=== PATIENT | female | born 1950 | race Caucasian/White ===

== ENCOUNTER 2016-07-09 06:16 | Day surgery (SDC) | payer OTHER ==
[2016-07-09] VITALS (14 sets, daily range): BP systolic 78–129; BP diastolic 50–75; PULSE 80–89; RESP 10–18; O2SAT 89–99
[~2016-07-09] VITALS: Ht 180.3 cm; Wt 80.5 kg
[~2016-07-09 06:16] MED LIST: CeFAZolin Inj 2 GM in IV Premix 1 EACH IV SCH; LEVO137T2 PO; LISI-567 PO; METF500T7 PO; PRE625 PO; Phenazopyridine 97.5 mg Tablet PO SCH; SIMV40TA5 PO; TRAZ-115 PO
[2016-07-09] MEDS ORDERED: fentaNYL-PF 50 mCg/mL 2 mL Inj ONE (06:17)
[2016-07-09] MEDS ORDERED: Ketamine 10 mg/mL 20 mL Inj ONE (06:17)
[2016-07-09] MEDS ORDERED: HYDROmorphone 2 mg/mL Inj ONE (06:17)
[2016-07-09] MEDS: Lactated Ringer's 1,000 ML IV SCH ×6 (07:25→16:42)
--- NOTE | 2016-07-09 08:51 | PCM.HPANE ---
Patient Data Date of Service: Jul 09, 2016 (0800 interview) Surgeon Admitting Provider: Attending Provider:Mervin Padilla MD Primary Care Physician:Alex De La Rosa DO Other Provider: Reason for Visit Uterovag Prolapse,Cystocele,Rectocele,Incontinence Ht/WT & BMI Height (Feet): 5 Height (Inches): 11 Weight (Kilograms): 80.5 Body Mass Index 24.00 Allergies Coded Allergies: No Known Allergies (Verified , 03/13/09) Uncoded Allergies: CORTISONE (Allergy, Severe, RASH SEVERE HIVES, 03/13/09) Past Anesthesia History Anesthesia History: Denies:: Abnormal Airway, Anesthesia Reactions, Difficult Intubation Diabetes History Hx Diabetes?: Yes Type of Diabetes: Type II Glycemic Control: Oral Medication Current Bedside Blood Glucose: 93 Medications Hypertension Medication: Yes Home Meds Incl Beta Shahab: No Reported Medications Levothyroxine 137 Mcg [id number] Mcg PO DAILY Ref 0 07/08/16 Metformin ER 500 Mg [id number] Mg PO DAILY Ref 0 07/08/16 Trazodone 50 Mg [id number] Mg PO HS Ref 0 07/08/16 Estrogens Conjugated (Premarin)0.625 Mg Tablet0.625 Mg PO 2xweekly 30 Days Ref 0 07/08/16 Lisinopril 20 Mg [id number] Mg PO DAILY 30 Days Ref 0 07/08/16 Simvastatin 40 Mg [id number] Mg PO HS 30 Days Ref 0 07/08/16 Discontinued Reported Medications Tramadol-Expunged Drug, Do Not Renew! (Ultram-Expunged Drug, Do Not Renew!)50 Mg Tab50 Mg PO TID PRN Ref 0 01/05/09 Atenolol-Expunged Drug, Do Not Renew! 25 Mg Josljt40 Mg PO HS Ref 0 01/05/09 Levothyroxine-Expunged Drug, Do Not Renew! (Synthroid-Expunged Drug, Do Not Renew!)25 Mcg Tablet0.15 Mcg PO Ref 0 01/05/09 Duloxetine-Expunged Drug, Do Not Renew! (Cymbalta-Expunged Drug, Do Not Renew!) 30 Mg Capsule.dr30 Mg PO AM Ref 0 01/05/09 History History of ENT Problems?: No HEENT History: Denies:: Difficult Intubation Hx of Heart Problems?: Yes Cardiovascular History: Positive for:: Hypertension Hx of Respiratory Problem?: No Respiratory History: Denies:: Asthma COPD Emphysema Oxygen Administration Pneumonia Tuberculosis Use of C-PAP Machine Use of Inhalers / NEBS Hx Neurologic Problems?: No Neurological History: Denies:: CVA Multiple Sclerosis Parkinson's Disease Seizures Hx of GI Problems?: No Gastrointestinal History: Denies:: Cirrhosis Gall Bladder Disease Gastrointestinal Bleeding Heartburn Hepatitis Liver Disease Hx of Problems?: Yes Genitourinary History: Denies:: Kidney Stones Female Hx: Denies:: Currently Problems with Breasts? Skin History: Denies:: History Skin Disorders? Pressure Ulcers Hx Musculoskeletal Problems?: Yes Musculoskeletal History: Positive for:: Back Injury (multiple neck surgery) Osteoarthritis Denies:: Fibromyalgia Joint Replacement Musculoskeletal Trauma Myasthenia Gravis Hx of Psycho/Social Problems?: No Hx Surgeries?: Yes (multiple neck, left shoulder, foot, left hand) Hx Any Other Health Problems?: Yes Other History: Positive for:: Thyroid Disease Denies:: Cancer Hx Diabetes: YesBedside Blood Glucose: 93 Hx Alcohol Use: YesAlcoholic Drinks Per Day: rarelyHx Substance Use: NoHave You Smoked inLast 12 mo: No Stop/Bang Treated for Sleep Apnea?: No Do You Have a CPAP Machine?: No P-Blood Pressure: treated: Yes B- Body Mass Index > 35 kg/m2: No A- Age over 50: Yes N- Neck Large Circumference: No G- Gender Male: No TAVO Risk Assessment: Low Risk, <3 Yes Risk Assessment Category Category 1A: Patient has history of documented sleep apnea, and HAS NOT received any narcotic, sedative or anesthesia administration during this stay. Category 1B: Patient has history of documented sleep apnea, and HAS received any narcotic , sedative or anesthesia administration during this stay Category 2: Patient has SUSPECTED Obstructive Sleep Apnea, and HAS received any narcotic , sedative or anesthesia administration during this stay. Category 3: Patient has SUSPECTED Obstructive Sleep Apnea and HAS NOT received narcotic, sedative or anesthesia administration during this stay. Category 4: Outpatient in Procedural Areas with known sleep apnea or who screen positive for High Risk via the STOP/BANG questionnaire. Exam Exam Vital Signs Vital Signs Date Time Temp Pulse Resp B/P Pulse Ox O2 Delivery O2 Flow Rate FiO2 07/09/16 07:03 36.5 80 16 118/75 98 Room Air General Appearance: Alert, Oriented X3, Cooperative, No Acute Distress HEENT/AIRWAY: MP 2 Lungs: Clear to Auscultation, Normal Air Movement Heart: Exam Unremarkable, Regular Rate/Rhythm, No Murmurs/Rubs/Gallops Meds/Labs/Diagnostics Admission Meds Current Medications Lactated Ringer's (Lr) 1,000 ml @ 120 mls/hr Q8H20M IV Last administered on t 07:25; Start 07/09/16 at 05:00; Stop 07/09/16 at 13:19 Bedside Blood Glucose: 93 Plan Impression Patient chart reviewed, patient interviewed and anesthestic plan with risks, benefits, and alternatives discussed, and informed consent obtained. NPO Status: 0430 water with meds ASA Physical Status: ASA2 Mod Systemic Disease (DM 2) Anesthetic Plan: GA Bene/Risks/Altern/Consents: Yes HP Complete Prior to Induction: Yes Adrian Cedillo MD Jul 09, 2016 08:51
[2016-07-09] MEDS ORDERED: Lactated Ringer's 500 ML IV PRN (08:53)
[2016-07-09] MEDS ORDERED: Dexamethasone 4 mg/mL Inj IVPUSH PRN (08:55)
[2016-07-09] MEDS ORDERED: Ondansetron 2 mg/mL 2 mL Inj IVPUSH PRN ×2 (08:55→13:45)
[2016-07-09] MEDS ORDERED: EPHEDrine Sulfate 50 mg/mL Inj IVPUSH PRN (08:55)
[2016-07-09] MEDS ORDERED: Phenylephrine 10,000 mCg/mL Inj IVPUSH PRN (08:55)
[2016-07-09] MEDS ORDERED: fentaNYL-PF 50 mCg/mL 2 mL Inj IVPUSH PRN (08:55)
[2016-07-09] MEDS ORDERED: HYDROmorphone 1 mg/mL Inj IVPUSH PRN (08:55)
[2016-07-09] MEDS ORDERED: MetoCLOpramide 5 mg/mL 2 mL Inj IVPUSH PRN ×2 (08:55→13:45)
[2016-07-09] MEDS ORDERED: Lidocaine 1%-Epi 1:100,000 20 mL Inj INJ ONE (09:00)
[2016-07-09] MEDS ORDERED: Gentamicin 40 mg/mL 2 mL Inj IRRIGATION ONE (09:00)
[2016-07-09] MEDS ORDERED: Lidocaine 1%-Epi 1:100,000 20 mL Inj INFILTRATE ONE (09:00)
[2016-07-09] MEDS ORDERED: Sodium Chloride Bacteriostatic 30 mL Inj INJ ONE ×2 (09:00→10:54)
[2016-07-09] MEDS ORDERED: Lidocaine 1%-Epi 1:100,000 50 mL Inj INFILTRATE ONE (10:50)
[2016-07-09 11:10] LABS: APPEARANCE,URINE HAZY (CLEAR,HAZY); COLOR,URINE STRAW (YELLOW); OCCULT BLOOD,URINE NEGATIVE (NEGATIVE); PH,URINE 6.5 (5.0-8.0); UROBILINOGEN,URINE NORMAL (NORMAL)
[2016-07-09] MEDS ORDERED: Estrogens Conjugated 30 Gm Vaginal Cream VAGINAL ONE (13:04)
[2016-07-09] MEDS ORDERED: diphenhydrAMINE 25 mg Capsule PO PRN (13:45)
[2016-07-09] MEDS ORDERED: Alum-Mag Hydrox-Simeth 30 mL Suspension PO PRN (13:45)
[2016-07-09] MEDS ORDERED: Acetaminophen IV 1,000 MG in IV Premix 1 EACH IV SCH (14:00)
--- NOTE | 2016-07-09 14:59 | PCM.ANEP2 ---
Post Anesthesia Evaluation ASA/CMS Post Anesthesia VS in Patient's Normal Range?: Yes Resp Stable; Airway Patent?: Yes CV Function & Hydration Stable: Yes Mental Status Recovered?: Yes Pain control Satisfactory?: Yes N/V Control Satisfactory?: Yes Adrian Cedillo MD Jul 09, 2016 14:59
--- NOTE | 2016-07-09 14:59 | PCM.ANEP1 ---
Post Anesthesia Phase 1 PACU Phase 1 Assessment Date of Service: Jul 09, 2016 (0800 interview) Vital Signs Vital Signs Date Time Temp Pulse Resp B/P Pulse Ox O2 Delivery O2 Flow Rate FiO2 07/09/16 14:49 82 12 112/62 97 Nasal Cannula 3 07/09/16 14:39 84 10 108/64 96 Nasal Cannula 3 07/09/16 14:30 84 12 108/62 96 Nasal Cannula 3 07/09/16 14:18 88 14 96/61 95 Nasal Cannula 3 07/09/16 14:10 88 17 102/58 96 Nasal Cannula 3 07/09/16 14:07 84 13 102/57 89 Room Air 07/09/16 14:00 88 15 106/63 98 Simple Mask 10 07/09/16 13:55 89 10 107/56 95 Simple Mask 10 07/09/16 13:51 88 16 93/54 99 Simple Mask 10 07/09/16 13:45 86 15 90/54 99 Simple Mask 10 07/09/16 13:39 37.3 87 17 78/50 99 Simple Mask 10 07/09/16 07:03 36.5 80 16 118/75 98 Room Air Anesthetic Administered: GA Level of Alertness: Awake, talking AMBRIZ's with Equal Strength: Yes Pain: No Nausea or Vomiting: No Oxygen Delivery: Simple Mask Lungs: Clear to Auscultation, Normal Air Movement Dermatome Level: Full Sensation Adrian Cedillo MD Jul 09, 2016 14:59
--- NOTE | 2016-07-09 15:15 | NUR ---
Post op Pt arrived to floor ~1500. Able to move self from gurney to bed. C/o pain 02/24. Cade draining clear uop. keara pad in place; no drainage noted. Medicated with 1 mg ivp morphine with minimal relief of 12/25. Pt was able to tolerated water and toast with peanut butter. Medicated with 2 tabs of oxycodone.White board updated and explained plan of care with pt. Primary Nurse Yamileth GRANADOS aware. care ovi Addendum: 07/09/16 at 1742 by WILL SHARMA RN Pt resting comfortably after 2 tabs of perc. rates pain 10/25. Luis dior
[2016-07-09] MEDS: oxyCODONE-Acetamin 5-325 mg Tablet PO PRN (15:56)
[2016-07-09] MEDS: 0.9% Sodium Chloride 1,000 ML IV SCH (16:41)
[2016-07-09] MEDS: Insulin Human REGular 300 Unit/3 mL Inj SUBQ SCH ×2 (16:42→22:16)
[2016-07-09] MEDS: Senna-Docusate 8.6-50 mg Tablet PO SCH (21:27)
[2016-07-09] MEDS ORDERED: metFORMIN ER 500 mg ER24 Tablet PO SCH (21:56)
--- NOTE | 2016-07-09 22:49 | PCM.SURGOP ---
Surgical Operative Report Date of Service: Jul 09, 2016 Pre Operative Diagnosis 1. POPQ Stage 2 Apical Uterovaginal prolapse, incomplete 2. POPQ Stage 2 Anterior and Posterior vaginal prolapse 3. Urodynamically-confirmed Stress incontinence in female Post Operative Diagnosis 1. POPQ Stage 2 Uterine prolapse, Enterocele, Cystocele, Rectocele 2. Deficient pubocervical/pubovesical fascia 3. Urodynamically-confirmed Stress incontinence in female Procedure: 1. vaginal hysterectomy with bilateral salpingoophorectomy 2. anterior repair with Xenform biologic graft augmentation. 3. posterior colpoperineorrhaphy 4. high uterosacral ligament vaginal vault suspension and enterocele repair 5. TVT-obturator sling/cystoscopy. Surgeon and Access Rep: Surgeon: Mervin Padilla MD Assistants: Diego Jackson MD Indication for Procedure Kay has the following assessment to date: 1. Uterovaginal prolapse, incomplete N81.2 (618.2): 2. Midline cystocele N81.11 (618.01): 3. Rectocele N81.6 (618.04): 4. ASCUS with positive high risk HPV cervical R87.610 (795.01): normal colposcopy with biopsies 5. Urodynamically-confirmed Stress incontinence in female N39.3 (625.6): The patient is a candidate for surgical prolapse management in the form of vaginal hysterectomy with bilateral salpingectomy or with possible BSO, if the ovaries are accessible, anterior and posterior repair with possible biologic graft augmentation. high uterosacral ligament vaginal vault suspension, enterocele repair and TVT-obturator sling/cystoscopy. The patient signed the consent form. She agreed with the risks, benefits, and alternatives to surgery. The risks included but not limited to recurrence or persistence of prolapse, recurrence of persistence of incontinence, development of voiding dysfunction, development of urinary urgency, urgency incontinence, frequency, and need for intermittent self-catheterization or prolonged indwelling catheterization, injury to other organs including bladder, bowel, nerves or blood vessels. Need for blood transfusion, need for temporary colostomy or urinary stenting. Development of vaginal scarring, dyspareunia, defecatory dysfunction, recurring pain, hematoma formation, urinary tract infection, cellulitis, necrotizing fascitis, and medical risks including myocardial infarction, stroke or VTE. She also understood the FDA warnings associated with the use of vaginal mesh (dysparunia, vaginal erosion, erosion into bowel/bladder/urethra, requiring further surgery to correct these complications). The patient understood the risks and benefits and consented to surgery. Findings: see dictation Procedure Details SURGICAL TECHNIQUE: The patient was brought to the operating room and was placed under general anesthesia. She was prepped and draped in the normal fashion for vaginal surgery with the legs in Yellofin stirrups. She was given a dose of IV ancef intraoperatively. She received 200 mg of oral pyridium 30 min prior to surgery. 1. Vaginal Hysterectomy and bilateral salpingoophorectomy: Lidocaine 0.5% with 1:50,000 of epinephrine was infiltrated pericervically. A pericervical incision was made with a scalpel. Anteriorly, the bladder was sharply dissected off the cervix. Posteriorly, the cul de sac was entered with Sharp dissection. The bowels were packed with a mini-laparotomy sponge. The uterosacral ligaments were bilaterally clamped, divided and then tied in a transfixion fashion with 0-vicryl suture. Anteriorly, the Uterovesical peritoneum was entered with sharp dissection and the bladder was retracted upward with a right-angle retractor. The uterine vessels were clamped, ligated then tied with 0-vicryl suture. The uterine body was delivered posteriorly. The utero-ovarian ligaments were clamped bilaterally, coagulated with Ligasure Impact system, ligatated and then tied using 0-Vicryl suture. The ovaries and tubes appeared normal. Next we proceeded with Bilateral Salpingoophorectomy. The left ovary and tube were grasped with Ranjan clamp. A hysterectomy Clamp was placed along the vascular base. This was coagulated, then ligated with Ligasure Impact. The Pedicle was then tied using 0-vicryl suture. The same procedure was performed on the right adnexa. The uterus/cervix, tubes and ovaries were sent to pathology. It was noted that the pedicles and cuff were hemostatic after some cauterization. 2. High uterosacral ligament vaginal vault suspension, cystoscopy and enterocele repair: Mini laparotomy sponges were packed to retract the bowel upwards. A pair of Allis clamps were placed along the intraperitoneal portions of the vagina at the 5 and 7 o'clock positions. Tension along these Allis clamps allowed for identification of the uterosacral ligaments bilaterally. Also , the ureters were carefully palpated to avoid them. A pair of 0 Vicryl sutures were passed around the uterosacral ligaments of the level of the ischial spine bilaterally, totalling 4. Cystoscopy was performed while placing tension on the vault suspension sutures. Spillage of pyridium- stained urine was noted bilaterally. Next, a two 3-0 Prolene sutures were placed transversely through the cul-de-sac peritoneum. This was performed while using a gloved finger in the rectum as to avoid penetrating the underlying rectal mucosa. Tying these sutures obliterated the enterocele. 3. Anterior colporrhaphy with Xenform graft augmentation: Lidocaine 0.5% with 1 /81299 epinephrine was infiltrated along the anterior vaginal wall mucosa. The vaginal mucosa was noted to be thin and atrophic. A midline vertical incision was made through the anterior vaginal wall. The vaginal wall was dissected off the underlying pubocervical and pubovesical fascia. The dissection was extended laterally beyond the ischial pubic rami. It was noted that the pubocervical and pubovesical fascial tissues were deficient and thin. The cystocele was plicated in 2 layers, the first layer with 2-0 Vicryl suture in interrupted fashion, the second layer with 2-0 Tycron suture in an interrupted fashion. A trapezoidal piece of Xenform graft was then incorporated atop the plicated area far laterally. The graft was secured to the obturator internus membrane. At the level of the bladder neck, an upside down triangular piece of graft was excised so that there was no over-support created along the level of the bladder neck. Apically , the graft was passed through the proximal uterosacral ligament sutures. No anterior vaginal mucosa was needed to be excised. The vault suspension sutures were then passed through the planned apex of the vagina. Two were placed through the anterior apex and the other two, through the posterior apex. The vagina was then reapproximated using 3-0 Vicryl suture in a running-locked fashion. The high uterosacral ligament vaginal vault suspension sutures were tied and this elevated the apex of the vagina high up into the hollow of the sacrum. 4. Posterior colpoperineorrhaphy: Lidocaine 0.5% with 1:50,000 of epinephrine was infiltrated along the perineum and posterior vaginal wall mucosa. A thin wedge of perineum was excised. A Midline vertical incision was made through the posterior vagina with a scalpel. The vaginal mucosa was dissected off the underlying rectovaginal tissues. It was noted the fascial tissues were sufficient. The rectocele was repaired first in a site-specific defect fashion, and then it was plicated using 2-0 Vicryl suture in an interrupted fashion. A small amount of excess posterior vaginal mucosa was excised. The vagina was reapproximated using 3-0 Vicryl suture in a running-locked fashion. The perineum was reapproximated using 2-0 Vicryl suture in an interrupted fashion. The skin was reapproximated using 3-0 Vicryl suture in a subcuticular fashion. 5. TVT-Obturator sling and cystoscopy. Lidocaine 0.5% with epinephrine was infiltrated along the anterior vaginal wall mucosa at the level of the mid urethra. Midline vertical incision was made at that level, 2 periurethral tunnels were created with Metzenbaum scissors. Two stab incisions were created at the skin at the groin at a level 2 cm superior to the external urethral meatus and 2 cm lateral to the fold created between the vulva and thigh. Villa catheter had already been inserted. A butterfly guide was inserted into the right periurethral tunnel, a curved helical needle was inserted on top of the guide and rotated out to the ipsilateral skin incision. The same procedure was performed on the contralateral side. Next the Villa catheter was removed. Cystoscopy was performed. There was no inadvertent penetration of the sling to the vagina, urethra or bladder. The bladder appeared normal. Both ureteric orifices were visualized and noted to be functional by the brisk spillage of pyridium-stained urine. The plastic sheaths of the sling were removed. The bladder was filled with 300 mL of sterile water. Using the Crude maneuver, sling tension was appropriately adjusted. Also a right angle clamp was allowed to easily pass behind the sling so that the sling was placed in a tension-free manner. The sling ends were cut at the level of the skin. The skin was reapproximated using Mastisol, Steri-Strips and band-aids. The vagina was reapproximated using 3-0 Vicryl suture in a running fashion. The vagina was packed with Premarin-lubricated packing. The 16F indwelling villa catheter was connected to straight drainage. The patient's hips were periodically deflexed during the case. There were no complications. The EBL was 300 ml. All sponges and instruments were accounted for. She was taken to the recovery room in stable condition. Complications There were no periprocedural complications identified. Surgical Specimen Removed: Yes Specimen sent to Pathology: Yes Surgical Specimen description: uterus, cervix and ovaries Anesthetic Plan: GA Grafts, Implants: Grafts-See Implant Record, Implants-See Implant Record Output, Estimated Blood Loss: 300 (ml) Blood Administration during osuna: No Drains: None Catheters: Urethral 2 Way Villa Post Operative Plan overnight stay in bed as she requires a voiding trial in the am copies to: Diego Jackson MD; Alex De La Rosa DO; Mervin Padilla MD, William Andre Z MD Jul 09, 2016 22:49
[2016-07-10 00:32] VITALS: BP 125/73; PULSE 84; RESP 18; O2SAT 97
[2016-07-10] MEDS: oxyCODONE-Acetamin 5-325 mg Tablet PO PRN ×4 (00:44→13:19)
[2016-07-10] MEDS: 0.9% Sodium Chloride 1,000 ML IV SCH ×3 (00:45→09:23)
[2016-07-10] MEDS: Insulin Human REGular 300 Unit/3 mL Inj SUBQ SCH ×3 (02:30→13:22)
--- NOTE | 2016-07-10 03:31 | NUR ---
Pain Pt. was moaning and rated pain 10/10. 2mg IV morphine and 2 tabs of percocet given, and seem to be effective. Pt. falls asleep for a couple of hours, but wakes up with mod to severe pain. Will continue to monitor.
[2016-07-10 05:19] VITALS: BP 125/70; PULSE 88; RESP 18; O2SAT 97
[2016-07-10 06:21] LABS: BASOPHILS % (AUTO) 0.1 % (0-3); EOSINOPHILS % (AUTO) 0 % (0-5); MONOCYTES % (AUTO) 8.9 % (4-12); Mean Corpuscular Hemoglobin 31.6 pg (27.0-35.0); Mean Corpuscular Volume 93.3 fL (81-100); NEUTROPHILS % (AUTO) 81.5 % (40-74); Platelet Count 195 bil/L (150-400)
[2016-07-10] MEDS: Heparin 5,000 Unit/mL Inj SUBQ SCH ×2 (07:52→09:25)
[2016-07-10] MEDS: Senna-Docusate 8.6-50 mg Tablet PO SCH (07:55)
[2016-07-10 07:57] VITALS: BP 109/67; PULSE 84; RESP 16; O2SAT 95
--- NOTE | 2016-07-10 08:15 | NUR ---
Heparin Did not administer heparin this morning because patient's hematocrit is 30.4 and order says only to admin if >31. Patient has SCD's on. Patient has call light should she need any assistance. Addendum: 07/10/16 at 1311 by SANKET LANDRY RN MD NOTIFICATION Patient rated her pain as 5/10. Per patient the IV Morphine and Percocet have been fairly effective. Tolerating liquids PO and her diet well. Denies nausea. No emesis noted. Denies SOB. Weaned off O2. Vaginal packing and IFC in place. Dressing in her bilateral groin is CDI. Peripad had moderate output at this time. Hgb/Hct: 10.3/30.4. Dr. Padilla updated RE: Patients progress. New med orders received. Will continue to monitor.
[2016-07-10] MEDS ORDERED: metFORMIN ER 500 mg ER24 Tablet PO SCH (09:21)
--- NOTE | 2016-07-10 11:00 | NUR ---
Vaginal Packing/Voiding Trial Pre-medicated patient with 2 tab of Percocet around 0930am and then had her take a short walk in her room 30 minutes later. Patient ambulated steadily but did say she was a little bit dizzy when she first got up. Then I had patient return to bed and I removed her vaginal packing, per orders. Then voiding trial began with 300ml of sterile water being inserted in to villa. Villa was then removed. Patient sat on the commode for about 20 minutes but was unable to void at all. Bladder scan showed 413ml so villa cath was re-inserted. Some blood clots were present around the site during insertion. Villa draining danii urine. Explained the villa care to the patient but will demonstrate care before discharge and have her return demonstrate to ensure understanding. Patient has call light and is calling appropriately. Addendum: 07/10/16 at 1653 by SANKET LANDRY RN VOIDING TRIAL I was with the student RN upon initiation and completion of the voiding trial as well as IFC placement. Vaginal packing was d/cd without any issues noted. Patient was not able to void after initiation of voiding trial. [id number]. IFC was placed. Dr. Padilla was updated RE: Voiding trial and IFC placement.
--- NOTE | 2016-07-10 13:45 | PCM.PNSURG ---
Subjective Date of Service: Jul 10, 2016 Date of Service: Jul 10, 2016 Visit Information: Reason for Visit Uterovag Prolapse,Cystocele,Rectocele,Incontinence Surgery/Surgery Date HYSTERECTOMY 07/09/16 Post-Op Day # 1 Subjective: AVSS ambulating pain controlled with Percocet and Ibuprofen OR explained - atrophic vagina noted Hct stable U/O good failed void trial - had villa teaching Postop General: No Complaints Gastrointestinal: Good Appetite Pain Management: PO Postop Activity: Ambulating Independently Objective Vital Sign- Last 8 Hours Date Time Temp Pulse Resp B/P Pulse Ox O2 Delivery O2 Flow Rate FiO2 07/10/16 07:57 36.8 84 16 109/67 95 Room Air Intake and Output- Last 8 Hour 07/10/16 Cumulative From/Thru 07:00 07/08/16 13:44 - 07/10/16 05:59 Intake Total 2201 ml 5151 ml Output Total 750 ml 2070 ml Balance 1451 ml 3081 ml Intake Oral 640 ml 640 ml IV Total 1561 ml 4511 ml Output Urine Total 750 ml 1470 ml Estimated Blood Loss 600 ml # Bowel Movements 0 0 General: Alert, Oriented X3, Cooperative Lungs: Clear to Auscultation Abdomen: Benign, Soft Catheters: Urethral 2 Way Villa Result Diagram: 07/10/16 0555 Assessment & Plan Impression stable POD#1 Problems: Plan d/c home today pt requests percocet and ibuprofen f/u 1 wk for voiding trial f/u [address] Padilla VTE Prophylaxis: Sub-Q Heparin (Unfractionated) Resuscitation Status: CPR: Attempt Resuscitation copies to: Mervin Padilla MD, William Andre Z MD Jul 10, 2016 13:45
--- NOTE | 2016-07-10 13:48 | PCM.DIGYN ---
Surgical Discharge Instruction Dates of Hospitalization Date of Hospital Admission 07/09/16 as outpatient in bed Providers Admitting Physician: Primary Care Physician: Alex De La Rosa DO Attending Physician: Mervin Padilla MD Diagnosis at Time of Discharge Diagnosis at time of discharge uterovaginal prolapse and stress incontinence Post-operative diagnosis 1. POPQ Stage 2 Uterine prolapse, Enterocele, Cystocele, Rectocele 2. Deficient pubocervical/pubovesical fascia 3. Urodynamically-confirmed Stress incontinence in female Problems: Diet Discharge Diet: No restrictions Activity Discharge Activity-General: Restrict lifting to no greater than (20 lb for 6 wk ) Dressing and Incisional Care Dressing Care: Allow Steri Stripes to fall off Hygiene: May shower Additional Instructions Discharge Instructions take the oral premarin daily start vaginal estrogen cream 2 grams twice weekly at bedtime in 1 wk (Dr. Padilla will give you a prescription at your next visit for the cheaper version; you can use the manufactured version until you run out) Follow Up Plan Follow-up appointment: Weeks (1; also in [address] Padilla) Call your provider for: Fever, Chills, Shortness of breath, Vomitting, Drainage at incision, Heavy vaginal bleeding, Wound redness, Increasing pain Mervin Padilla MD Jul 10, 2016 13:48
--- NOTE | 2016-07-10 16:10 | NUR ---
Discharge Patient rates pain at 6/10 at the present time. Patient states that the Percocet and Ibuprofen have been effective but the pain does not ever fully go away, only goes down to a 4/10. Patients IV removed. Patient denies nausea/vomiting, chest pain, SOB at this time. Patients bandaid dressings on groin are C/D/I with old shadowing present. Told patient she could take off bandaids but needs to leave Steri strips until they fall off on their own. Gave patient all the discharge instructions and information about catheter care then I demonstrated proper, clean care of the villa. Patient was anxious to leave with her friend and refused to do a return demonstration. Patient given the medication list and explained which meds to continue and what new meds she is being prescribed and the dosing regimen/schedule. Patient wheeled out in wheelchair and her friend is taking her to get her prescriptions filled and then home. Addendum: 07/10/16 at 1708 by SANKET LANDRY RN DISCHARGE Percocet 2 tabs and Ibuprofen 800 mg PO has been helpful for pain control. Patients pain level is 4/10 after her pain medication. Patient stated that this has been tolerable for her. Tolerating liquids PO and her diet well. Denies nausea. No emesis noted. Denies SOB. Patient was able to ambulate in the room with SBA. Tolerated activity fairly. IFC intact and draining to danii colored UO. Band aid dressing is CDI with old shadowing noted. IV saline lock was d/cd by SN. Discharge instructions, care notes and prescription was given to the patient and she verbalized understanding. IFC care and instruction was given to the patient and she verbalized understanding but she did not want to do any return demonstration during the discharge process. Discharged to home with her friend and all her personal belongings. (Copy of D/C is in the chart).
--- NOTE | 2016-07-11 14:44 | PATH ---
SURGICAL PATHOLOGY Attending Physician:Mervin Padilla, CASE STATUS: Signed Out PATIENT NAME: HANG AMAYA PID: [id number] : 1950 DATE COLLECTED:07/09/2016 22:24 SPECIMEN: 1: Uterus +/- tubes/ovaries, except neoplastic, prolapse 2: Ovary +/- tube, non-tumor CLINICAL HISTORY: UTERINE PROLAPSE, ASCUS ON PAP (HIGH RISK HPV TESTING) 1). UTERUS WITH RIGHT TUBE AND OVARY 2). LEFT TUBE AND OVARY FINAL DIAGNOSIS: 1.UTERUS WITH RIGHT TUBE AND OVARY (CLINICAL PROLAPSE): CYSTIC ATROPHY OF ENDOMETRIUM, NEGATIVE FOR ATYPIA. MULTIPLE SIMPLE EPITHELIAL CYSTS, RIGHT OVARY. RIGHT FALLOPIAN TUBE UNREMARKABLE. 2.LEFT FALLOPIAN TUBE AND OVARY: MULTIPLE SIMPLE EPITHELIAL CYSTS, OVARY. FALLOPIAN TUBE UNREMARKABLE. ICD10 CODE N81.4 GROSS DESCRIPTION: The specimens are received in formalin, labeled with the patient's name, and sublabeled as the following: (1) uterus with right tube and ovary; (2) left tube and ovary. (1) The specimen consists of a uterus (30 g, 2.6 cm AP, 6.5 cm SI, 2.8 cm ML) and a detached ovary (2.3 x 1.8 x 1.0 cm) with an attached fimbriated fallopian tube (length-3.5 cm, diameter-0.6). The second ovary and fallopian tube are absent. The cervix (1.6 cm AP, 2.8 cm ML) has a transverse os and patent endocervical canal lined with multiple cystic cavities (0.1 cm-0.5 cm) containing clear colorless gelatinous material. The endometrium (average thickness-0.1 cm) is monroy smooth and flat. The myometrium (thickness-1.3 cm) is monroy and unremarkable. The serosa is monroy smooth and shiny. The ovary has bright yellow smooth shiny flat serosa. The parenchyma is pale yellow solid and firm with corpus albicans identified. The fallopian tube has monroy smooth shiny serosa and a monroy unremarkable lumen. The cervix is radially sectioned and submitted from 12:00. Section code: (1A-1B) cervix, 12:00-3:00; (1C-1D) cervix, 3:00-6:00; (1E-1F) cervix, 6:00-9:00; (1G-1H) cervix, 9:00-12:00; (1I, 1J) anterior endomyometrium; (1K, 1L) posterior endomyometrium; (1M) ovary, serially sectioned, c s s representative; (1N) fallopian tube, serially sectioned, c s s representative; (1O) fimbria, bivalved, entirely submitted. Note: Cervix entirely submitted. (2) The specimen consists of an ovary (1.9 x 1.8 x 1.0 cm) with an attached fimbriated fallopian tube (length-3.5 cm, diameter-0.6 cm). The ovary has pale yellow smooth shiny flat serosa. The parenchyma is pale yellow solid and firm with corpus albicans identified. The fallopian tube is monroy smooth shiny serosa and a monroy unremarkable lumen. Section code: (2A) ovary, serially sectioned, c s s representative; (2B) fallopian tube, serially sectioned, c s s representative; (2C) fimbria, bivalved, entirely submitted. 07/10/16 JM MICRO DESCRIPTION: See diagnosis. ICD-9 CODES: CPT CODES: 1: 60249 2: 00378 PROCEDURE/ADDENDA: Addendum SPI Addendum Diagnosis {Not Entered} Addendum Comment Per the request of Dr. Mervin Padilla, this case is re-reviewed by Dr. Jonas Murphy. The following addendum is issued: 1.UTERUS WITH RIGHT TUBE AND OVARY (CLINICAL PROLAPSE): CERVIX WITH EROSION, INFLAMMATION, AND SQUAMOUS ATYPIA. NO EVIDENCE OF MALIGNANCY OR DYSPLASIA. Electronically Signed Out Jonas Murphy MD Electronically Signed Out Michael Kline MD [facility] Pathology [facility] [address], [place] [address] Technical component performed at [facility], [facility] [address], [place], [address]
== END 2016-07-10 16:13 | disposition home or self-care (01) ==
LOC: SAS 06:16 → OSC 15:14 → SAS 07-10 16:13
PROVIDERS: ATTEND Obstetrics & Gynecology
DX: N81.2 Incomplete uterovaginal prolapse (principal); N81.6 Rectocele; N39.3 Stress incontinence (female) (male); N83.292 Other ovarian cyst, left side; N83.291 Other ovarian cyst, right side; E11.9 Type 2 diabetes mellitus without complications; Z79.84 Long term (current) use of oral hypoglycemic drugs; I10 Essential (primary) hypertension
CPT/HCPCS: 36415; 57260; 57267; 57283; 57288; 58262; 81000; 85025; 86850; C1763; C1771; J0690; J1170; J1580; J1644; J1815; J2250; J2270; J3010; J7030; J7120